=== PATIENT | male | born 1965 | race Caucasian/White ===

== ENCOUNTER 2016-12-16 04:07 | Emergency (ER) | payer MEDICAID ==
[~2016-12-16] VITALS: Ht 177.8 cm; Wt 91.0 kg
[~2016-12-16 04:07] MED LIST: AMLO5TAB4 PO; ATOR10TA PO; Folic Acid PO; Lisinopril PO; MIRT-91 PO; MULT-1146 PO; OMEP20TA80 PO; TRAZ-132 PO; Thiamine Hcl PO
[2016-12-16] MEDS ORDERED: ONDANSETRON HCL 4MG/2ML VIAL IV STA ×2 (04:24→06:10)
[2016-12-16] MEDS ORDERED: SODIUM CHLORIDE 0.9% 1,000 ML IV ONE (04:24)
[2016-12-16] MEDS ORDERED: KETOROLAC 30MG/ML VIAL IV ONE (04:30)
[2016-12-16 04:43] LABS: BASOPHILS % 0.6 % (0.0-2.0); EOSINOPHILS % 0.2 % (0.0-5.0); HEMATOCRIT. 43.2 % (42.0-52.0); HEMOGLOBIN. 14.8 g/dL (14.0-18.0); LYMPHOCYTES % 19.9 % (20.0-50.0); MEAN CORPUSCULAR HEMOGLOBIN 31.5 pg (28.0-32.0); MEAN CORPUSCULAR VOLUME 92.3 fL (80.0-94.0); MEAN PLATELET VOLUME 7.3 fl (7.4-10.4); MONOCYTES % 5.7 % (2.0-8.0); NEUTROPHILS % 73.6 % (40.0-76.0); PLATELET 204 x1000/uL (130-400); RED BLOOD CELL COUNT 4.68 mill/uL (4.7-6.1); RED CELL DISTRIBUTION WIDTH 14.8 % (11.6-14.6)
[2016-12-16 04:50] LABS: PROTHROMBIN TIME 10.5 sec
[2016-12-16 05:01] LABS: CARBON DIOXIDE 23 mEq/L (21-32); CHLORIDE 99 mEq/L (98-107)
[2016-12-16] MEDS ORDERED: DICYCLOMINE 10 MG/5 ML ORAL SYR PO STA (06:10)
[2016-12-16] MEDS ORDERED: MAGNESIUM/ALUMINUM HYDROXIDE/SIMETHICONE 30ML UDC PO STA (06:10)
[2016-12-16] MEDS ORDERED: VISCOUS LIDOCAINE 2% 15 ML UDC PO STA (06:10)
[2016-12-16] MEDS ORDERED: LORAZEPAM 2MG/ML CPJ IV ONE (06:30)
[2016-12-16] MEDS ORDERED: CHLORDIAZEPOXIDE 25MG CAPSULE PO ONE (06:30)
[2016-12-16 08:38] VITALS: BP 144/92
== END 2016-12-16 08:40 | disposition home or self-care (01) ==
LOC: ER 05:16
DX: F10.239 Alcohol dependence with withdrawal, unspecified (principal); F20.9 Schizophrenia, unspecified; I25.10 Atherosclerotic heart disease of native coronary artery without angina pectoris; Y90.9 Presence of alcohol in blood, level not specified
CPT/HCPCS: 36415; 80053; 83690; 85025; 85610; 96361; 96374; 96375; 96376; 99284; J1885; J2060; J2405; J7030; Z7610

== ENCOUNTER 2017-04-26 13:10 | Emergency (ER) | payer MEDICAID ==
[~2017-04-26] VITALS: Ht 177.8 cm; Wt 91.0 kg
[~2017-04-26 13:10] MED LIST changes: +OMEP20TA2 PO; -OMEP20TA80 PO
[2017-04-26 13:15] VITALS: BP 125/83
== END 2017-04-26 15:17 | disposition left against medical advice (07) ==
LOC: ER 13:21
DX: R10.9 Unspecified abdominal pain (principal); Z53.21 Procedure and treatment not carried out due to patient leaving prior to being seen by health care provider